=== PATIENT | female | born 1970 | race Caucasian/White ===

== ENCOUNTER 2018-05-08 08:25 | Inpatient (IN) | payer BC ==
[~2018-05-08] VITALS: Ht 170.2 cm; Wt 79.4 kg
[~2018-05-08 08:25] MED LIST: CEFAZOLIN SOD 1 GM/ ISO 50 ML PREMIX IV ONE
[2018-05-08] MEDS ORDERED: ALBU8.5H8 INH (09:02)
[2018-05-08] MEDS ORDERED: ONDANSETRON HCL 4 MG/2 ML VIAL IVP ONE (10:15)
[2018-05-08] MEDS ORDERED: BUPIVACAINE /PF 0.25% 30 ML VIAL INJ ONE (10:15)
[2018-05-08] MEDS ORDERED: SEVOFLURANE 15 MIN GAS INH ONE (10:15)
[2018-05-08] MEDS ORDERED: NS IRRIG SOLN 1000 ML IR ONE (10:15)
[2018-05-08] MEDS ORDERED: MIDAZOLAM HCL 5 MG/5 ML VIAL IVP ONE (10:15)
[2018-05-08] MEDS ORDERED: ROPIVACAINE 0.2% (NAROPIN) PF SOLUTION 100 ML BOTTLE EP ONE (10:15)
[2018-05-08] MEDS ORDERED: PROPOFOL 200MG/ 20ML VIAL (DIPRIVAN) IV ONE (10:15)
[2018-05-08] MEDS ORDERED: ROCURONIUM BROMIDE 10 MG/ML (ZEMURON) IV ONE (10:15)
[2018-05-08] MEDS ORDERED: SUGAMMADEX SODIUM 200 MG/2 ML VIAL IV ONE (10:15)
[2018-05-08] MEDS ORDERED: fentaNYL CITRATE 250 MCG/5 ML AMP IV ONE (10:15)
[2018-05-08] MEDS ORDERED: MORPHINE SULFATE 10MG/10ML PF AMP EP ONE (10:15)
[2018-05-08] MEDS ORDERED: LR 1,000 ML IV SCH (11:18)
[2018-05-08] MEDS ORDERED: METOCLOPRAMIDE HCL 10 MG/2 ML VIAL IVP PRN (11:30)
[2018-05-08] MEDS ORDERED: MEPERIDINE HCL/PF 25 MG/ML DISP.SYRIN IVP PRN (11:30)
[2018-05-08] MEDS ORDERED: DIPHENHYDRAMINE INJ 50 MG/ML VIAL IM PRN (11:30)
[2018-05-08] MEDS ORDERED: NALOXONE HCL 0.4 MG/ML AMP (NARCAN) IVP PRN (11:30)
[2018-05-08] MEDS ORDERED: MEPERIDINE HCL/PF 50 MG/ML AMP IVP PRN ×2 (11:30)
[2018-05-08] MEDS ORDERED: MORPHINE SULFATE 10MG/10ML PF AMP SP SCH (11:30)
[2018-05-08] MEDS ORDERED: ONDANSETRON HCL 4 MG/2 ML VIAL IVP PRN ×2 (11:30→14:30)
[2018-05-08] MEDS ORDERED: SIMETHICONE 80 MG TAB.CHEW PO PRN (11:45)
--- NOTE | 2018-05-08 13:30 | NUR ---
ADMISSION NOTE Received patient from PACU via gurney. Patient admitted with diagnosis of S/P hyesterectomy. Patient is awake, alert, oriented X 4. Patient oriented to hospital room, call light, toileting, pain management and safety-teach back done. Patient informed that I will be her nurse and that their room number is 124B. Personal belongings checked and Belongings List documented. Call light within reach.
[2018-05-08 13:46] VITALS: BP_SYST 146
[2018-05-08] MEDS: LR 1,000 ML IV SCH ×2 (14:06→18:19)
[2018-05-08] MEDS ORDERED: OXYCODONE/ACETAMINOPHEN 5-325 TABLET PO PRN (14:30)
[2018-05-08] MEDS ORDERED: HYDROcodone/ACETAMIN 5-325 MG TAB (NORCO/ VICODIN) PO PRN (14:30)
[2018-05-08] MEDS: CEFAZOLIN 1 GM IVPB PREMIX 50 ML IV SCH ×2 (14:33→21:21)
--- NOTE | 2018-05-08 14:36 | NUR ---
rounds: patient on bed resting. no distress noted. at bedside.
--- NOTE | 2018-05-08 16:35 | NUR ---
rounds: patient resting. denies pain. no distress noted.
--- NOTE | 2018-05-08 18:06 | NUR ---
Q pump: turn on the q pump as per instruction to unclamp.
--- NOTE | 2018-05-08 18:47 | NUR ---
Closing notes: Patient on bed resting. Stable. Needs attended. On Q pump. Abdominal incision covered with dressing. Dressing intact. Applied Ice per order. Safety measures in placed. Call light within reach. Report will be given at bedside.
--- NOTE | 2018-05-08 19:30 | NUR ---
Late Entry due to Pt Care: Initial PM Note Pt is fully awake, alert and oriented x4. Speech is clear and pt is able to make her needs known. Lower abdominal dressing is dry and intact with On Q pump in place and infusing Ropivacaine at 8ml/hr. pt denies piIVF of LR is infusing well in left wrist at 125ml/hr without any signs of infiltration. Addendum: 05/09/18 at 0209 by Nia Jacinto RN Pt denies pain or discomfort. Pt was instructed to use IS 10x Q 1hr WA and pt verbalized understanding. Pt demonstrated good IS usage with volume of 2000ml. Her Cath to gravity drainage is patent with clear yellowish urine. Fall and safety precautions are in place. Pt was instructed to call for assistance as needed and pt verbalized understanding. Call light is with pt and bed alarm is on.
[2018-05-08 20:00] VITALS: BP_SYST 144
--- NOTE | 2018-05-08 20:30 | NUR ---
Dangle/Out of Bed With assistance, pt dangled at the bedside. Pt also took some steps by her bedside. No c/o pain or discomfort. No c/o dizziness. IVF is infusing well at 125ml/hr.
[2018-05-08] MEDS ORDERED: SENNOSIDES/DOCUSATE SODIUM 1 TAB TABLET(SENOKOT-S) PO PRN (21:00)
[2018-05-08] MEDS ORDERED: TEMAZEPAM 15 MG CAPSULE PO PRN (21:00)
--- NOTE | 2018-05-08 22:00 | NUR ---
Rounds Pt is resting quietly in bed. Pt denies pain or discomfort. Abdominal dressing remains dry and intact with abdominal binder in place. IVF is infusing well in left wrist. Call light is with pt and bed alarm is on.
--- NOTE | 2018-05-09 | NUR ---
Rounds Pt is sleeping without any distress noted. Fall and safety precautions are in place.
[2018-05-09 00:19] VITALS: BP_SYST 129
--- NOTE | 2018-05-09 02:00 | NUR ---
Rounds Pt continues to sleep without any distress noted. IVF is infusing well in left wrist. Call light is with pt and bed alarm is on.
--- NOTE | 2018-05-09 04:00 | NUR ---
Rounds Pt is sleeping comfortably in bed without any distress noted. IVF of LR is infusing well in LW. Fall and safety precautions are in place. Call light is with pt and bed alarm is on.
[2018-05-09] MEDS: LR 1,000 ML IV SCH ×3 (04:41→20:33)
[2018-05-09] MEDS: CEFAZOLIN 1 GM IVPB PREMIX 50 ML IV SCH ×2 (05:59→14:42)
--- NOTE | 2018-05-09 06:35 | NUR ---
Her Catheter Removal/Closing Note Her Catheter was removed as ordered by MD. Pt is fully awake and alert. No c/o pain or discomfort at this time. IVF is infusing well in LW. All pt's needs were attended to. No fall or injury noted this shift. Will endorse to day shift nurse.
[2018-05-09 07:45] LABS: BASOPHILS % (AUTO) 0.2 % (0.0-2.0); EOSINOPHILS % (AUTO) 0.3 % (0.0-4.0); HEMATOCRIT 30.8 % (36-48); HEMOGLOBIN 9.5 g/dL (12.0-16.0); LYMPHOCYTES # (AUTO) 1.3 K/uL (1.0-5.5); LYMPHOCYTES % (AUTO) 14.8 % (20.5-51.5); MEAN CORPUSCULAR HEMOGLOBIN 26 pg (27-31); MEAN CORPUSCULAR HGB CONC 31 % (32-36); MEAN CORPUSCULAR VOLUME 84 fL (79.0-98.0); MONOCYTES # (AUTO) 0.6 K/uL (0.0-1.0); MONOCYTES % (AUTO) 6.8 % (1.7-9.3); NEUTROPHILS # (AUTO) 6.8 K/uL (1.8-7.7); NEUTROPHILS % (AUTO) 77.9 % (40.0-70.0); PLATELET COUNT (AUTO) 182 K/uL (130-430); RED BLOOD CELL COUNT(AUTO) 3.66 MIL/uL (4.2-6.2); RED CELL DISTRIBUTION WIDTH 14.4 % (9.0-15.0); WHITE BLOOD COUNT (AUTO) 8.7 K/uL (4.8-10.8)
--- NOTE | 2018-05-09 07:45 | NUR ---
OPENING NOTE: MORNING REPORT WAS TAKEN FROM RADIO OFFICER NURSE. PATIENT IS ALART AND ORIENTED. PATIENT NOT COMPLAINING OF NAUSEA OR VOMITING. PATIENT NOT COMPLAINING OF SHORTNESS OF BREATH. PATIENT NOT COMPLAINING OF CONSTIPATION. PATIENT'S BOWEL SOUNDS HYPOACTIVE. PATIENT HAS ABDOMINAL BINDER ON. DRESSING SEEMED TO BE LEAKING SO DRESSING WAS PUT ON TO REENFORCE BY NIGHT NURSE. PATIENT HAS PUMPS ON. IV FLUIDS INFUSING. PATIENT ABLE TO FEEL TOUCH, MOVE TOES, AND PULSES PRESENT. CAP REFILL <3 SEC. PATIENT SAID LEGS FEEL A LITTLE NUMB. SCD'S ARE ON. BED ALARM IS ON AND CALL LIGHT IS IN REACH. WILL CONTINUE TO MONITOR.
[2018-05-09 08:06] VITALS: BP_SYST 132
[2018-05-09] MEDS: OXYCODONE/ACETAMINOPHEN 5-325 TABLET PO PRN ×3 (08:57→20:28)
--- NOTE | 2018-05-09 09:12 | NUR ---
NOTE: PATIENT WAS COMPLAINING OF PAIN. ECHO GAVE PATIENT PAIN MEDICATION. PATIENT HAD TO USE RESTROOM. HELPED HER TO RESTROOM. PATIENT URINATED 300ML. SMALL BLOOD CLOT WAS NOTICED IN URINE. PUT PATIENT BACK IN BED. WILL CONTINUE TO MONITOR.
--- NOTE | 2018-05-09 09:36 | NUR ---
Nutrition Update Jorge Scale 17 noted. Pt admitted for post hysterectomy. Diet: clear liquid BMI: 27.4 kg/m2 RD to follow per nutrition care standards.
--- NOTE | 2018-05-09 11:50 | NUR ---
PATIENT SITTING AT EDGE OF BED DANGLING FEET. PATIENT EVENTUALLY WANTS TO GO FOR WALK. WILL CONTINUE TO MONITOR.
[2018-05-09 12:00] VITALS: BP_SYST 117
--- NOTE | 2018-05-09 12:33 | NUR ---
HELPED PATIENT TO RESTROOM. PATIENT URINATED 500ML. NO BLOOD. HELPED PATIENT BACK TO BED. PATIENT SET UP TO EAT LUNCH. SCD'S ON. FLUIDS INFUSING. ENCOURAGED PATIENT TO KEEP USING INCENTIVE SPIROMETER. WILL CONTINUE TO MONITOR.
[2018-05-09] MEDS ORDERED: IBUPROFEN 800 MG TABLET PO PRN (14:30)
--- NOTE | 2018-05-09 14:54 | NUR ---
PATIENT WAS COMPLAINING OF PAIN. GAVE PATIENT PAIN MEDICATION. PATIENT HAD TO PEE. HELPED PATIENT TO RESTROOM. PATIENT URINATED 700 ML. HELPED PATIENT BACK TO BED. HUNG BAG OF ANTIBIOTICS. PATIENT HAS NO FURTHER REQUESTS. WILL CONTINUE TO MONITOR.
[2018-05-09 16:48] VITALS: BP_SYST 120
--- NOTE | 2018-05-09 17:43 | NUR ---
TOOK PATIENT FOR WALK THROUGH OUT [address]. PATIENT NOT COMPLAINING OF SHORTNESS OF BREATH OR LIGHTHEADEDNESS. PATIENT NOT COMPLAINING OF PAIN AT MOMENT. PATIENT WANTED TO STAND FOR BIT WHEN GOT BACK TO ROOM. DINNER DELIVERED. AT BEDSIDE. WILL CONTINUE TO MONITOR.
--- NOTE | 2018-05-09 18:59 | NUR ---
CLOSING NOTE: PATIENT IS SITTING IN BED TALKING TO FAMILY AT BEDSIDE. PATIENT NOT COMPLAINING OF SHORTNESS OF BREATH AND PATIENT IS ON ROOM AIR. PATIENT HAS FLUIDS INFUSING. PATIENT NOT COMPLAINING OF PAIN. PATIENT HAS SCD'S ON. PATIENT HAS BEEN USING INCENTIVE SPIROMETER THROUGH OUT DAY. PATIENT HAS NO FURTHER REQUESTS. CALL LIGHT IS IN REACH AND BED IS IN LOWEST POSITION. WILL CONTINUE TO MONITOR AND GIVE REPORT TO MOLD STAMPER AND REPAIRER NURSE.
--- NOTE | 2018-05-09 19:30 | NUR ---
Initial Notes Received handoff report from offgoing nurse at the bedside. Patient is awake and alert, resting comfortably in bed. No SOB, no actue distress, no complaints of pain at this time. Bed is locked, in the lowest position, 2x side rails up. Refuses bed alarm. IV site is intact, dessing clean and dry, currently infusing IVF at ordered rate. Explained plan of care, patient verbalized understanding. Dr Vazquez at the bedside to speak with the patient. Will continue with plan of care.
[2018-05-09 20:00] VITALS: BP_SYST 142
--- NOTE | 2018-05-09 20:28 | NUR ---
Patient ambulated to the restroom and back to bed with assistance from her . Patient is now back in bed, resting comfortably. Refuses bed alarm at this time. Patient is complaining of 7/10 pain in her lower abdominal area, radiating to her back, especially after ambulation. Provided pain medication PRN per MD order, see eMAR for details.
--- NOTE | 2018-05-09 22:33 | NUR ---
Patient is resting comfortably in bed, awake and alert. No SOB, no acute distress, no complaints at this time. Bed is locked, in the lowest position, 2x side rails up, bed alarm is on. Call light is within reach. Encouraged patient to call. Lights have been turned off per patient request to promote rest, also curtains have been pulled closed per patient request to promote rest.
--- NOTE | 2018-05-09 23:38 | NUR ---
Patient used call light to call for assistance. Assisted patient to ambulate to the bathroom and back to bed. Patient provided hand hygiene independently. Bed is locked, in the lowest position, 2x side rails up. Patient refuses bed alarm. Call light is within reach. Encouraged patient to call for assistance.
[2018-05-10] VITALS: BP_SYST 119
--- NOTE | 2018-05-10 00:52 | NUR ---
Patient is asleep, resting comfortably in bed. No SOB, no acute distress, no signs of pain or facial grimacing. Breathing is even and unlabored. Visible chest rise and fall seen. Call light is within reach.
--- NOTE | 2018-05-10 02:30 | NUR ---
Patient is resting comfortably in bed with eyes closed. No SOB, no acute distress, no signs of pain or facial grimacing. Breathing is even and unlabored with visible chest rise and fall. Call light within reach.
[2018-05-10] MEDS: OXYCODONE/ACETAMINOPHEN 5-325 TABLET PO PRN (03:42)
--- NOTE | 2018-05-10 03:42 | NUR ---
Patient ambulated to the restroom with assistance, gait is steady. When arriving to the toilet, patient had a near miss fall. Patient felt dizzy and was supporting herself by holding the wall. Assisted the patient to sit down onto the toilet. Patient states that she got up too fast, and it made her dizzy. After patient urinated, patient got up independently from the toilet, and washed her hands, and returned to the bed independently. Gait is steady. Patient is now back in bed. No SOB, no acute distress. Patient is complaining of throbbing abdominal pain 02/12. Provided Percocet PRN per MD order, see eMAR for details. Bed is locked, in the lowest position, 2x side rails up. Turned on bed alarm. Call light is within reach. Encouraged patient to call for assistance.
[2018-05-10] MEDS: LR 1,000 ML IV SCH ×2 (03:43→11:45)
--- NOTE | 2018-05-10 06:20 | NUR ---
Patient is resting comfortably in bed with eyes closed. No SOB, no acute distress, no signs of pain or facial grimacing. Breathing even and unlabored with visible chest rise and fall noted. IV site is intact, dressing clean and dry, currently infusing IVF at ordered rate, see eMAR. Bed is locked, in the lowest position, 2x side rails up, bed alarm is on. Call light is within reach.
--- NOTE | 2018-05-10 07:25 | NUR ---
Closing Notes Handoff report given to oncoming dayshift nurse at the bedside. Patient is awake and alert, resting comfortably in bed. No SOB, no acute distress, no complaints of pain at this time. IV site is intact, dressing clean and dry, currently infusing IVF at ordered rate, see eMAR. Bed is locked, in the lowest position, 2x side rails up, bed alarm is on. Call light is within reach. Fall and safety precautions maintained. All needs have been met during this shift.
--- NOTE | 2018-05-10 07:26 | NUR ---
PAGED PAGED YOBANI PALMER AT [phone] SPOKE WITH SAMAN.
--- NOTE | 2018-05-10 07:32 | NUR ---
DR BOO CALLED BACK AND SAID PATIENT CAN HAVE REGULAR DIET. WILL CALL DIETARY TO LET THEM KNOW.
--- NOTE | 2018-05-10 07:45 | NUR ---
OPENING NOTE: MORNING REPORT WAS TAKEN FROM CLINICAL SCIENCE LIAISON NURSE. PATIENT IS ALART AND ORIENTED X4. PATIENT NOT COMPLAINING OF NAUSEA OR VOMITING. PATIENT NOT COMPLAINING OF SHORTNESS OF BREATH. PATIENT NOT COMPLAINING OF CONSTIPATION. PATIENT'S BOWEL SOUNDS ACTIVE. PATIENT HAS ABDOMINAL BINDER ON. DRESSING SEEMED TO BE LEAKING SO DRESSING WAS REENFORCED. GVE PATIENT ICE PACKS TO PUT ON ABD. PATIENT SAID SHE DOESNT FEEL BLOATED YESTERDAY AND PASSED CHRISTINE. PATIENT HAS Q PUMPS IN. PATIENT COMPLAINING OF MINOR PAIN BUT DOESNT WANT ANYTHING YET. IV FLUIDS INFUSING. PATIENT ABLE TO FEEL TOUCH, MOVE TOES, AND PULSES PRESENT. PATIENT SAID LEGS ARENT NUMB YESTERDAY. CAP REFILL <3 SEC. SCD'S ARE ON. BED ALARM IS ON AND CALL LIGHT IS IN REACH. WILL CONTINUE TO MONITOR.
[2018-05-10 08:04] VITALS: BP_SYST 140
--- NOTE | 2018-05-10 10:35 | NUR ---
PATIENT WAS COMPLAINING OF PAIN. GAVE PATIENT PAIN MEDICATION. AT BEDSIDE. PATIENT HAS NO FURTHER REQUEST. WILL CONTINUE TO MONITOR.
[2018-05-10 12:22] VITALS: BP_SYST 153
--- NOTE | 2018-05-10 12:39 | NUR ---
FLUIDS WERE DUE FOR PATIENT. PATIENT SAID SHE DOESNT WANT ANYMORE BECAUSE SHE KEEPS PEEING. SO PATIENT REFUSED TO HAVE MORE FLUIDS. PATIENT EATING AND DRINKING WELL. PATIENT NOT COMPLAINING OF NAUSEA OR VOMITING. PATIENT HAS NO FURTHER NEEDS. WILL CONTINUE TO MONITOR.
[2018-05-10 12:57] VITALS: BP_SYST 153
--- NOTE | 2018-05-10 15:25 | NUR ---
D/C Patient Patient given medication reconciliation form and D/C instructions. Exit Care provided. Patient verbalized understanding. MD discussed with patient the results and treatment provided. Ambulatory with steady gait for discharge to home. Patient in stable condition, ID band removed. IV catheter removed, intact and dressing applied, no active bleeding. Rx given. Patient educated on pain management. Dr. Vazquez wants patient to go home with q pump and take out tomorrow. Patient educated on how to take out q pump. Patient verbalized understanding. Additional instructions in jimbo pack. All belongings sent with patient. Patient wheeled out to front.
[2018-05-10] MEDS ORDERED: fentaNYL CITRATE/PF 100 MCG/2 ML AMP ONE (16:12)
== END 2018-05-10 15:20 | disposition home or self-care (01) | DRG 743 ==
LOC: SDS 08:25 → SMU 08:25 → EDSTATUS 10:00 → SDS 11:48 → SMU 11:49
PROVIDERS: ADMIT Specialist; ATTEND Specialist
PROC: 0UT70ZZ Resection of Bilateral Fallopian Tubes, Open Approach (ICD-10-PCS; 2018-05-08)
PROC: 0UT90ZL Resection of Uterus, Supracervical, Open Approach (ICD-10-PCS; principal; 2018-05-08 10:00)
DX: D25.9 Leiomyoma of uterus, unspecified (principal); N80.0 Endometriosis of uterus; J45.909 Unspecified asthma, uncomplicated
CPT/HCPCS: 36415; 85025; 87081; 88307; C9399; J0690; J2250; J2274; J2405; J2704; J2795; J3010; J3490; J7120